=== PATIENT | female | born 1955 | race Two or more races ===

== ENCOUNTER 2020-08-24 08:20 | Outpatient (CLI) | payer OTHER ==
[2020-10-04] MEDS ORDERED: ondansetron PO (10:18)
[2020-10-04] MEDS ORDERED: dexamethasone PO (10:18)
== END 2020-08-24 23:59 | disposition home or self-care (01) ==
LOC: ROC 08:20
PROVIDERS: ATTEND Radiology Radiation Oncology
DX: C53.9 Malignant neoplasm of cervix uteri, unspecified (principal)
CPT/HCPCS: 99214; G0463

== ENCOUNTER → 2020-10-04 | Outpatient (CLI) | payer OTHER ==
[~2020-10-04] MED LIST: dexamethasone PO; ondansetron PO
[2020-10-04 10:58] LABS: BASOPHILS % (AUTO) 0 % (0-1); EOSINOPHILS % (AUTO) 0 % (1-7); LYMPHOCYTES % (AUTO) 5 % (22-44); MEAN CORPUSCULAR HEMOGLOBIN 30.1 pg (27.0-34.8); MEAN CORPUSCULAR HGB CONC 34.9 g/dL (32.4-35.8); MEAN PLATELET VOLUME 7.5 fL (7.4-10.4); MONOCYTES % (AUTO) 8 % (2-9); NEUTROPHILS % (AUTO) 87 % (42-75); PLATELET COUNT 193 x10^3/uL (130-400); RED BLOOD COUNT 3.58 x10^6/uL (3.82-5.3); RED CELL DISTRIBUTION WIDTH 14.5 % (9.6-15.2)
[2020-10-04 11:09] LABS: ALANINE AMINOTRANSFERASE 25 U/L (12-78); ALBUMIN 2.9 g/dL (3.4-5.0); ANION GAP 9 mmol/L (5-15); CALCIUM 7.9 mg/dL (8.5-10.1); CHLORIDE 107 mmol/L (98-107); INTERNATIONAL NORMALIZED RATIO 0.97 (0.93-1.1); PROTHROMBIN TIME 10.4 Seconds (9.6-11.5)
[2020-10-04 11:12] LABS: ALKALINE PHOSPHATASE 93 U/L (45-117); BILIRUBIN,TOTAL 0.4 mg/dL (0.2-1.0); CREATININE 0.75 mg/dL (0.55-1.02); TOTAL PROTEIN 6.1 g/dL (6.4-8.2)
== END | disposition home or self-care (01) ==
LOC: STAR 09:42
PROVIDERS: ATTEND Obstetrics & Gynecology
DX: Z01.818 Encounter for other preprocedural examination (principal); D07.0 Carcinoma in situ of endometrium; D06.9 Carcinoma in situ of cervix, unspecified; N95.0 Postmenopausal bleeding; R94.31 Abnormal electrocardiogram [ECG] [EKG]; Z20.822 Contact with and (suspected) exposure to COVID-19
CPT/HCPCS: 36415; 71046; 80053; 85025; 85610; 85730; 93005; U0003; U0005

== ENCOUNTER 2020-10-09 05:29 | Day surgery (SDC) | payer OTHER ==
[~2020-10-09] VITALS: Ht 142.2 cm; Wt 70.4 kg
[2020-10-09] MEDS ORDERED: LACTATED RINGERS 1,000 ML IV SCH (06:30)
[2020-10-09] MEDS ORDERED: CHLORHEXIDINE 15 ML UDC PO ONE (06:30)
[2020-10-09] MEDS ORDERED: BUPIVACAINE/PF 0.25% ONE (06:48)
[2020-10-09] MEDS ORDERED: EPINEPHRINE 1 MG/ML, 1ML ONE (06:48)
[2020-10-09 06:51] VITALS: BP 129/84
[2020-10-09] MEDS ORDERED: CEFOTETAN PMX 2GM/50ML 50 ML IVPB ONE (07:00)
[2020-10-09] MEDS ORDERED: FENTANYL PF 250 MCG/5ML ONE (07:09)
[2020-10-09] MEDS ORDERED: MIDAZOLAM 1 MG/ML, 2ML ONE (07:09)
[2020-10-09] MEDS ORDERED: LIDOCAINE-MPF 2% ,5ML ONE (07:12)
[2020-10-09] MEDS ORDERED: SUCCINYLCHOLINE 20 MG/ML, 10ML ONE (07:12)
[2020-10-09] MEDS ORDERED: DEXAMETHASONE 4 MG/ML, 1ML ONE (07:12)
[2020-10-09] MEDS ORDERED: ONDANSETRON 2MG/ML, 2ML ONE (07:12)
[2020-10-09] MEDS ORDERED: PROPOFOL 10 MG/ML, 20ML ONE (07:12)
[2020-10-09 07:27] LABS: ANION GAP 8 mmol/L (5-15); CALCIUM 7.4 mg/dL (8.5-10.1); CHLORIDE 109 mmol/L (98-107); CREATININE 0.83 mg/dL (0.55-1.02)
[2020-10-09] MEDS ORDERED: KETOROLAC 30 MG/1 ML ONE (07:36)
[2020-10-09] MEDS ORDERED: ONDANSETRON 2MG/ML, 2ML IVPush PRN (08:30)
[2020-10-09] MEDS ORDERED: FENTANYL PF 100 MCG/2ML IV PRN (08:30)
[2020-10-09] MEDS ORDERED: ACETAMINOPHEN 325 MG TABLET PO PRN (08:30)
[2020-10-09] MEDS ORDERED: OXYcodone 5 MG/5 ML ORAL.SOL UDC PO PRN (08:30)
[2020-10-09] MEDS ORDERED: HYDROmorphone 1 MG/ML, 1ML INJ IVPush PRN (08:30)
[2020-10-09] MEDS ORDERED: PROMETHAZINE 25 MG/ML, 1ML IVPush PRN (08:30)
[2020-10-09] MEDS ORDERED: MEPERIDINE/PF 25MG/0.5ML IVPush PRN (08:30)
== END 2020-10-09 10:20 | disposition home or self-care (01) ==
LOC: OUT 05:29
PROVIDERS: ATTEND Obstetrics & Gynecology
DX: C53.0 Malignant neoplasm of endocervix (principal); N95.0 Postmenopausal bleeding; M19.90 Unspecified osteoarthritis, unspecified site; Z98.890 Other specified postprocedural states; Z79.899 Other long term (current) drug therapy
CPT/HCPCS: 36415; 57155; 80048; J0171; J0330; J1100; J1885; J2250; J2405; J2704; J3010; J7120

== ENCOUNTER 2020-10-12 08:00 | Outpatient (CLI) | payer OTHER ==
[2020-10-12] MEDS ORDERED: GADOTERATE 7.5 MMOL/15ML SYR ONE (09:42)
[2020-10-12] MEDS ORDERED: SODIUM CHLORIDE 0.9%, 500ML ONE (12:30)
[2020-10-12] MEDS ORDERED: MIDAZOLAM 1 MG/ML, 5ML ONE (12:30)
[2020-10-12] MEDS ORDERED: FENTANYL PF 100 MCG/2ML ONE (12:30)
[2020-10-17] MEDS ORDERED: FENTANYL PF 100 MCG/2ML IVPush ONE (07:30)
[2020-10-17] MEDS ORDERED: MIDAZOLAM 1 MG/ML, 5ML IVPush ONE (07:30)
== END 2020-10-12 23:59 | disposition home or self-care (01) ==
LOC: CFH 08:00
PROVIDERS: ATTEND Radiology Radiation Oncology
DX: C53.9 Malignant neoplasm of cervix uteri, unspecified (principal)
CPT/HCPCS: 72197; A9575; J2250; J3010; J7040

== ENCOUNTER → 2020-11-16 | Outpatient (CLI) | payer OTHER | END | disposition home or self-care (01) | LOC: ROC 09:40 | PROVIDERS: ATTEND Radiology Radiation Oncology | DX: C53.9 Malignant neoplasm of cervix uteri, unspecified (principal); D63.0 Anemia in neoplastic disease; M19.90 Unspecified osteoarthritis, unspecified site; Z79.899 Other long term (current) drug therapy | CPT/HCPCS: 99212; G0463 ==